=== PATIENT | male | born 1960 | race Two or more races ===

== ENCOUNTER → 2024-02-17 | Outpatient (CLI) | payer MEDICARE, MEDICAID, SELFPAY ==
[2024-02-17 08:47] LABS: Anion Gap 7 (7-16); BUN/Creatinine Ratio 15 Ratio (12-20); Blood Urea Nitrogen 15 mg/dL (9-23); Calcium 9.6 mg/dL (8.3-10.6); Carbon Dioxide 27.5 mMol/L (20.0-31.0); Chloride 107 mMol/L (98-107); Glucose 106 mg/dL (74-106); Osmolality,Calculated 282 (275-295); Potassium 4.3 mMol/L (3.4-5.1); Sodium 141 mMol/L (136-145); eGFR > 60 See Note
== END | disposition home or self-care (01) ==
PROVIDERS: PCP Internal Medicine; Referring Provider Otolaryngology; Visit Provider Otolaryngology
DX: H90.42 Sensorineural hearing loss, unilateral, left ear, with unrestricted hearing on the contralateral side (principal)
CPT/HCPCS: 36415; 80048

== ENCOUNTER → 2024-02-24 | Outpatient (CLI) | payer MEDICARE, MEDICAID, SELFPAY ==
--- NOTE | 2024-02-24 15:00 | XR_ITS ---
Examination: MRI of brain without intravenous contrast. MRI brain with intravenous contrast. Date and time of exam:February 24, 2024 1712 hrs. Indications: Bilateral hearing loss left-sided headaches and ringing in the left ear 3 months Technique: Multiple axial and sagittal images of the brain to been obtained. Siemens high-resolution 1.52 Julissa short bore scanner utilized. Sagittal sections, T1 weighted images, TR 500, TE 14, are performed. Axial sections proton-density and T2-weighted images have been obtained. Inversion recovery axial images, TR 9260, TE 111, TR 2500. Diffusion weighted images, axial sections, TR 4800, TE 128, B value 1000. Axial sections, ADC map, TR 4800, TE 128. Axial and coronal images were also obtained post 20 cc gadolinium administered intravenously. Findings:: Enlargement of the sella turcica is not present. The optic chiasm and infundibular stalk are not remarkable. There is no localized enlargement of the medulla or luis. Fourth ventricle and cerebellar tonsils appear normal in position. No subacute area of hemorrhage density is seen. Fourth ventricle is midline. Mass in the cerebellopontine angle region is not evident. 7th and 8th nerve complexes exhibit symmetry Globes are symmetrical Orbital musculature including medial lateral rectus muscles do not exhibit abnormality Increased white matter signal is mild Effacement of the cortical sulcal markings is not identified. Mass effect upon the ventricular system is not identified. Diffusion-weighted images demonstrate no focus of restricted diffusion Contrast images demonstrate no abnormal contrast enhancement Impression: Acute hemorrhage mass effect or midline shift No acute infarct Moderate chronic frontal ethmoid sinusitis No enhancing acoustic neurinoma, no abnormal enhancing cerebellar or cerebral lesions
== END | disposition home or self-care (01) ==
LOC: SMRI 14:47
PROVIDERS: PCP Otolaryngology; Referring Provider Otolaryngology; Visit Provider Otolaryngology
DX: R22.0 Localized swelling, mass and lump, head (principal); J32.8 Other chronic sinusitis
CPT/HCPCS: 70553; A9579

== ENCOUNTER → 2024-06-18 | Outpatient (CLI) | payer MEDICARE, MEDICAID, SELFPAY ==
--- NOTE | 2024-06-18 | XR_ITS ---
Examination: Left elbow 3 views Technique: Elbow AP, oblique, lateral 3 views Exam date and time: June 18, 2024 0756 hrs. Indications: Left elbow pain one year. Findings: No fracture or dislocation Mild narrowing elbow joints 4 mm posterior bony olecranon spur Impression: Mild elbow osteoarthritis.
== END | disposition home or self-care (01) ==
LOC: CDIM 07:17
PROVIDERS: PCP Internal Medicine; Referring Provider Internal Medicine; Visit Provider Internal Medicine
DX: M19.022 Primary osteoarthritis, left elbow (principal)
CPT/HCPCS: 73080

== ENCOUNTER → 2024-08-05 | Day surgery (SDC) | payer MEDICARE, MEDICAID, SELFPAY ==
--- NOTE | 2024-08-03 10:32 | EKG_ITS ---
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
[2024-08-03 11:18] VITALS: BMI 30.2
[2024-08-03 12:36] LABS: Alanine Aminotransferase 10 U/L (10-49); Albumin, Serum 4.3 gm/dL (3.4-4.8); Alkaline Phosphatase 64 U/L (46-116); Anion Gap 9 (7-16); Aspartate Amino Transferase 17 U/L (0-34); BUN/Creatinine Ratio 15 Ratio (12-20); Blood Urea Nitrogen 16 mg/dL (9-23); Calcium 8.8 mg/dL (8.3-10.6); Calcium (Corrected) 8.8 mg/dL (8.5-10.1); Carbon Dioxide 28.5 mMol/L (20.0-31.0); Chloride 104 mMol/L (98-107); Creatinine (Component) 1.1 mg/dL (0.6-1.3); Estimated Creatinine Clearance 74.3 mL/min (>60); Globulin 2.1 gm/dL (2.3-3.5); Glucose 110 mg/dL (74-106); Osmolality,Calculated 283 (275-295); Potassium 3.9 mMol/L (3.4-5.1); Sodium 141 mMol/L (136-145); Total Protein 6.4 gm/dL (5.7-8.2); eGFR > 60 See Note
[2024-08-03 12:37] LABS: INR 1.3 (0.9-1.3); Prothrombin Time 13.6 Seconds (9.0-12.2)
--- NOTE | 2024-08-04 14:57 | SUR.PREOP ---
Pt notified to come in at 1230 tomorrow.
[2024-08-05] VITALS (12 sets, daily range): BP systolic 101–130; BP diastolic 69–89; PULSE 74–88; RESP 12–22; TEMP 36.1–36.8; O2SAT 95–99; BMI 29.5
--- NOTE | 2024-08-05 17:03 | PD.SUROPNT ---
Date of Procedure 08/05/24 Pre Op Diagnosis Profound sensorineural hearing loss left ear Post Op Diagnosis Profound sensorineural hearing loss left ear Procedure Insertion of the left Sentio implant Findings Normal postauricular anatomy Procedure Description Indications: This is a 64-year-old male who has profound hearing loss in the left ear refractory to hearing aid usage. Treatment options were discussed as well as surgical risk of bleeding infection and implant extrusion and potential need for further surgery. He understood this as well as anticipated outcomes and wished to proceed. Patient was marked and shaved in preoperative setting and transferred to the operative suite where he is anesthetized intubated and sterilely prepped and draped. Timeout was performed. Curvilinear postauricular incision was created over the site of the anterior portion of the implant. Anterior and posterior flaps were developed and the template was used to make sure the flap was deep enough posteriorly. Once this is reached the appropriate sized the template was removed. The skull and been marked with the cautery at the center of where the well would be drilled. Using 4 mm cutting bur the wall was drilled down to between 1 and 2 mm depth. Template gauge was used to assure that it was the proper depth as well as diameter. A trough was drilled posteriorly for the electrode. The implant was then brought into the field and put in position. 45 mm band was selected and the self-tapping screws were used to hold the band in place. Incision was then closed in a multilayer fashion with 4-0 Vicryl and then Dermabond on the skin. Patient was awakened and taken the recovery room in stable condition Anesthesia GETA Implants Left Sentio implant Pathology / specimen None Estimated Blood Loss 5 Surgeon Brando Ortega DO Surgical Staff Operation Date: 08/05/24 14:30 Case Staff Anesthesiologist: Negrito Jimenez
--- NOTE | 2024-08-05 18:01 | SUR.PHASEI ---
1711 PATIENT RECEIVED INTO BAY 3, REPORT RECEIVED FROM NICOLE SMITH AND DR SCHMIDT, PATIENT ON OXY MASK AT 4L. INCISION BEHIND LEFT EAR IS CLEAN DRY AND INTACT AND DRESSED WITH DERMABOND. VSS NO S/S OF DISTRESS NOTED. 1720 CHARISMA EAR DRESSING APPLIED BY ALEXUS SMITH.
--- NOTE | 2024-08-05 18:06 | SUR.PHASEII ---
1800 PATIENT TOLERATING PO APPLE JUICE, VITALS REMAIN STABLE.
--- NOTE | 2024-08-05 19:51 | SUR.PHASEII ---
AT 1830 PATIENT'S GIVEN D/C INSTRUCTION, SHE STATED ALL INSTRUCTION WERE UNDERSTOOD AND HAD NO FURTHER QUESTION OR CONCERNS.
== END | disposition home or self-care (01) ==
PROVIDERS: PCP Internal Medicine; Referring Provider Otolaryngology; Visit Provider Otolaryngology
PROC: (CPT 69710; principal; 2024-08-05 14:30)
DX: H90.3 Sensorineural hearing loss, bilateral (principal); Z01.810 Encounter for preprocedural cardiovascular examination
CPT/HCPCS: 69716; L8614; 36415; 80053; 85025; 85610; 93005; A4217; A4649; J0690; J1100; J1885; J2250; J2371; J2405; J2704; J3010; J3490; Q9968

== ENCOUNTER → 2024-12-17 | Outpatient (CLI) | payer MEDICARE, MEDICAID, SELFPAY ==
--- NOTE | 2024-12-17 | XR_ITS ---
Examination: Shoulder, right, 3 views Technique: Shoulder AP internal rotation, AP external rotation, Y view shoulder, 3 views Exam date and time : December 17, 2024, 1149 hours INDICATIONS: Onset right shoulder pain beginning 1 month ago. FINDINGS: Mild narrowing glenohumeral joint Moderate osteoarthritis of acromioclavicular joint No shoulder fracture or dislocation IMPRESSION: Mild narrowing glenohumeral joint Moderate osteoarthritis acromioclavicular joint
== END | disposition home or self-care (01) ==
LOC: CDIM 11:13
PROVIDERS: PCP Internal Medicine; Referring Provider Internal Medicine; Visit Provider Internal Medicine
DX: M25.811 Other specified joint disorders, right shoulder (principal); M19.011 Primary osteoarthritis, right shoulder
CPT/HCPCS: 73030

== ENCOUNTER 2025-01-31 16:38 | Emergency (ER) | payer MEDICARE, MEDICAID, SELFPAY ==
[2025-01-31 17:22] VITALS: BP 104/76; PULSE 66; RESP 18; TEMP 36.5; O2SAT 97; BMI 24.3
--- NOTE | 2025-01-31 17:24 | XR_ITS ---
Examination: CT brain head without contrast. 2-D sagittal coronal reconstructions Date and time of exam: January 31, 2025, 1746 hours INDICATIONS: Dizziness weakness onset today CTDI: vol (mGy): 54.7 DLP: (mGycm): 1113 Technique: Multiple CT axial sections of the brain have been obtained, 5 mm slice thickness. Contrast has not been administered. 2-D sagittal, coronal reconstructions have been obtained Low dose protocols were performed. One or more of the following dose reduction techniques were used; automated exposure control, adjustment of the mA and/or KV according to patient size, use of iterative reconstruction technique. Findings: No significant ventricular enlargement. Intra-axial or extra-axial hemorrhage density is not seen. No mass effect or midline shift Basal cisterns are not remarkable. Fourth ventricle is midline. Cranial vault intact. Extensive artifacts secondary to opaque devices posterior left parietal bone Impression: Limited study with no acute hemorrhage, mass effect or midline shift
--- NOTE | 2025-01-31 17:24 | EKG_ITS ---
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
--- NOTE | 2025-01-31 17:26 | PD.EDRME ---
Rapid Medical Screening Exam E Arrival date/time: 01/31/25 16:38 This is a case of 64-year-old male who came in with history of hypertension came in in the emergency room due to dizziness nausea headache chest pain patient took blood pressure and noted to be 80/60 thus decided to start consulted in the emergency room Chief Complaint: Dizziness Time Seen by Provider: 01/31/25 17:01 Vital signs: Vital Signs Temperature 97.7 F 01/31/25 17:22 Pulse Rate 66 01/31/25 17:22 Respiratory Rate 18 01/31/25 17:22 Blood Pressure 104/76 01/31/25 17:22 Pulse Oximetry (%) 97 01/31/25 17:22 Oxygen Delivery Method Room Air 01/31/25 17:22 Exam: Neurological exam is normal awake alert oriented x 4 no focal deficit GCS 15/15 steady gait normal rate regular rhythm no murmur clear breath sounds Clinical Impression: Chest pain dizziness
[2025-01-31 18:22] LABS: Basophils # (Auto) 0.1 Thou/mm3 (0.0-0.2); Basophils % (Auto) 1 % (0-2.5); Eosinophils # (Auto) 0.4 Thou/mm3 (0.0-0.5); Eosinophils % (Auto) 4 % (0-10); Hematocrit 40.5 % (41.0-53.0); Hemoglobin 13.6 g/dL (13.5-16.0); Immature Granulocytes Auto 0.02 Thou/mm3 (0.00-0.00); Lymphocytes # (Auto) 2.8 Thou/mm3 (1.0-4.8); Lymphocytes % (Auto) 28 % (10-50); Mean Corpuscular HGB Conc 33.6 g/dl (31.0-37.0); Mean Corpuscular Hemoglobin 30.2 pg (25.0-35.0); Mean Corpuscular Volume 90 fL (80-100); Monocytes # (Auto) 0.7 Thou/mm3 (0.0-0.8); Monocytes % (Auto) 7 % (0-12); Neutrophils # (Auto) 6.1 Thou/mm3 (1.8-7.7); Neutrophils % (Auto) 60 % (37-80); Nucleated Red Blood Cell # 0.00 Thou/mm3 (0.00-0.00); Nucleated Red Blood Cell % 0 /100 WBC (0); Platelet Count 275 Thou/mm3 (140-440); RDW Standard Deviation 46.5 fL (35.1-43.9); Red Blood Count 4.50 Miln/mm3 (4.50-5.90); White Blood Count 10.2 Thou/mm3 (3.8-10.6)
[2025-01-31 18:51] LABS: Alanine Aminotransferase 9 U/L (10-49); Albumin, Serum 4.5 gm/dL (3.4-4.8); Albumin/Globulin Ratio 2.1 (1.2-2.2); Alkaline Phosphatase 57 U/L (46-116); Anion Gap 7 (7-16); Aspartate Amino Transferase 11 U/L (0-34); BUN/Creatinine Ratio 11 Ratio (12-20); Bilirubin,Total 0.7 mg/dL (0.3-1.2); Blood Urea Nitrogen 16 mg/dL (9-23); Calcium 9.5 mg/dL (8.3-10.6); Calcium (Corrected) 9.5 mg/dL (8.5-10.1); Carbon Dioxide 27.8 mMol/L (20.0-31.0); Chloride 103 mMol/L (98-107); Creatinine (Component) 1.4 mg/dL (0.6-1.3); Estimated Creatinine Clearance 50.2 mL/min (>60); Globulin 2.1 gm/dL (2.3-3.5); Glucose 97 mg/dL (74-106); Osmolality,Calculated 276 (275-295); Potassium 4.0 mMol/L (3.4-5.1); Sodium 138 mMol/L (136-145); Total Protein 6.6 gm/dL (5.7-8.2); Troponin I < 0.020 ng/mL (0.0-0.045); eGFR 55 See Note
[2025-01-31 19:30] LABS: Collection Type, Urine Clean Catch
[2025-01-31 19:39] LABS: Bilirubin,Urine Negative (Negative); Blood,Urine Negative (Negative); Clarity,Urine Clear (Clear/Hazy); Color,Urine Yellow (Lt Yel-Yel); Glucose, Urine Negative (Negative); Hyaline Casts,Urine < 1 /hpf (0-1); Ketones,Urine Negative (Negative); Leukocyte Esterase,Urine Negative (Negative); Nitrite,Urine Negative (Negative); PH,Urine 6.0 (5.0-7.0); Protein,Urine Negative (Neg - Trace); RBC,Urine 2 /hpf (0-3); Specific Gravity,Urine 1.016 (1.001-1.035); Squamous Epithelial Cell,Urine < 1 /hpf (0-5); Urobilinogen,Urine Negative mg/dL (0.0-1.0); WBC,Urine < 1 /hpf (0-5)
[2025-01-31 19:45] VITALS: BP 104/78; PULSE 67; RESP 25; TEMP 36.6; O2SAT 99
[2025-01-31 19:48] VITALS: BP 104/78; PULSE 48; RESP 18; TEMP 36.6; O2SAT 95
--- NOTE | 2025-01-31 20:07 | PD.EDADULT ---
ED General RME/HPI General Chief complaint: Dizziness Stated complaint: DIZZY, NAUSEA, CALMMY TODAY, BP LOW AT HOME Time Seen by Provider: 01/31/25 17:01 Arrival date/time: 01/31/25 16:38 CC: Lightheadedness dizzy, and slow heart rate HPI patient noticed today that she was driving around that he had lightheadedness dizziness. Patient became clammy at 1 point lay down for several hours. Patient has A-fib and is seen by Dr. Baer dye range operator patient is not sure what his medications are however review of the record show the patient is on amlodipine 10 mg. Patient is awake alert Metcalf denies any chest pain shortness of breath. RME / HPI RME / HPI narrative: 01/31/25 16:38 This is a case of 64-year-old male who came in with history of hypertension came in in the emergency room due to dizziness nausea headache chest pain patient took blood pressure and noted to be 80/60 thus decided to start consulted in the emergency room Exam: Neurological exam is normal awake alert oriented x 4 no focal deficit GCS 15/15 steady gait normal rate regular rhythm no murmur clear breath sounds Impression: Chest pain dizziness Related Data Home Medications ?Medication ?Instructions ?Recorded ?Confirmed amlodipine 10 mg tablet 10 mg PO QDAY 09/04/23 08/05/24 lisinopril 40 mg tablet 40 mg PO QDAY 09/04/23 08/05/24 apixaban 5 mg tablet (Eliquis) 5 mg PO Q12H 07/14/24 08/03/24 Held on 08/05/24. Instructions: Resume on 08/07/24. hydrochlorothiazide 25 mg tablet 25 mg PO DAILY 07/14/24 08/05/24 Previous Rx's ?Medication ?Instructions ?Recorded cephalexin 500 mg capsule 500 mg PO BID #3 caps 08/05/24 Allergies Allergy/AdvReac Type Severity Reaction Status Date / Time No Known Allergies Allergy Verified 01/31/25 16:41 Review of Systems Review of Systems Narrative Review of Systems: GEN: No fever, no chills, no weight loss EYES: No discharge, no visual changes, no pain HEENT: No ear pain, no congestion, no sore throat PULM: No shortness of breath, no cough, no congestion CV: No chest pain, no dyspnea on exertion, no palpitations GI: No nausea, no vomiting, no diarrhea, no pain, no constipation : No frequency, no urgency, no dysuria MUSC/SKEL: No joint pain, no back pain SKIN: No rash PSYCH: No hallucinations, no depression HEME/LYMPH: No easy bleeding or bruising tendencies NEURO: No weakness, no headache Past Medical History Past Medical History NEUROLOGIC: Negative Neurological Disorders or Seizures CARDIAC: Positive Cardiac Disorders, Cardiac Arrhythmia, Atrial Fibrillation and Hypertension; Negative Congestive Heart Failure RESPIRATORY: Negative Chronic Obstructive Pulmonary Disease (COPD) GASTROINTESTINAL: Negative Gastrointestinal Disorders or Hepatitis GENITOURINARY: Negative Genitourinary Disorders or Renal Disease MUSCULOSKELETAL: Positive Musculoskeletal Disorders and Fractures ENT: Positive Deafness (Left) ENDOCRINE: Negative Endocrine Disorders, Diabetes Mellitus Type 1 or Diabetes Mellitus Type 2 HEMATOLOGIC: Negative Blood Disorders OTHER HISTORY: Positive Hospitalization (heart evaluation); Negative Autoimmune Disease, Shingles, Blood Transfusions, Blood Transfusion Reaction, Anesthesia Reactions or Cancer Family History FAMILY HISTORY: Positive Family Cardiac Disorders and Family Surgery; Negative Family Psychiatric Problems, Family Respiratory Disorders, Family Gastrointestinal Problems, Family Cancer or Family Anesthesia Reaction Surgical History SURGICAL: Positive Abdominal Surgery and Bowel Surgery (colon resection) Social History SMOKING STATUS: Never smoker SECOND HAND EXPOSURE: No ED Exam Narrative Physical exam: [General: Not in any acute distress Head normocephalic HEENT: Within acceptable limits Neck is supple nontender Chest equal chest rise nontender to palpation Respiratory: Clear to auscultation no wheezes crackles or rubs CV: Rate rhythm is irregular, bradycardic, no murmurs rubs or clicks Abdomen is soft nontender no masses positive bowel sounds all 4 quadrants Back: No CVA tenderness no spinous process tenderness from cervical spine thoracic and lumbar spine Skin: Intact no petechiae rash induration ulceration or crepitus Extremities: Moving all extremities against resistance cap refill less than 2 seconds neurosensory intact Neuro: Awake alert oriented x3 Glascow coma 15 no focal deficits] Course Course Course Narrative: Reassessed the patient after 1 L fluid the pressures have responded nicely. Currently patient has a pressure of 113/85, however, the patient continues to have a slow ventricular response.. I suspect this is overdosed on the amlodipine. At this time the patient will be advised to go home stop his amlodipine for 3 days, and record his pulse rate once in the morning once in the evening for those 3 days then, if the ventricular rate increases he is to restart his amlodipine at half dose of 5 mg. Follow-up with his dye range operator or if the heart rate stays close return to the emergency room for symptomatic bradycardia. Quality Measures none Orders Category Date Time Status EKG (ED ONLY) *Do not use* NOW Care 01/31/25 17:24 Completed Saline [Insert IV] NOW Care 01/31/25 20:[address] head/brain wo con Stat Exams 01/31/25 17:24 Completed EKG (ED Only) Stat Exams 01/31/25 17:24 Draft CBC Stat Lab 01/31/25 18:00 Completed Comprehensive Metabolic Panel Stat Lab 01/31/25 18:00 Completed Troponin I Stat Lab 01/31/25 18:00 Completed Urinalysis Stat Lab 01/31/25 17:55 Completed Sodium Chloride 0.9% 1000 ml [Ns] 1,000 ml Med 01/31/25 20:06 Active IV 999 mls/hr Vital Signs Vital signs: Vital Signs Temperature 97.7 F 01/31/25 17:22 Pulse Rate 66 01/31/25 17:22 Respiratory Rate 18 01/31/25 17:22 Blood Pressure 104/76 01/31/25 17:22 Pulse Oximetry (%) 97 01/31/25 17:22 Oxygen Delivery Method Room Air 01/31/25 17:22 Discharge Plan Plan Patient Disposition: HOME (Self Care) Patient condition on transfer: Stable Prescriptions/Referrals Prescriptions/Med Rec: No Action Eliquis 5 mg tablet 5 mg PO Q12H Patient Comments: TAKE 1 TABLET BY MOUTH TWICE A DAY hydrochlorothiazide 25 mg tablet 25 mg PO DAILY Patient Comments: TAKE 1 TABLET BY MOUTH EVERY DAY cephalexin 500 mg capsule 500 mg PO BID Qty: 3 0RF Rx Instructions: Begin first dose tonight amlodipine 10 mg tablet 10 mg PO QDAY lisinopril 40 mg tablet 40 mg PO QDAY Referrals: Na Correia MD [Primary Care Provider, Nephrology] - In 1 week Problem List Clinical Impression: Slow ventricular response Patient/Caregiver Discharge Instructions Other Activity Instructions:: 1: Stop taking your amlodipine for the next 3 days 2: Take your heart rate twice a day and write it down once in the evening and once in the morning. 3: After 3 days if your heart in rate has not improved, return to the emergency room for evaluation for symptomatic bradycardia. 4: Call Dr. Baer's office for a follow-up or call Dr. Correia's office for a follow-up for adjustment on your hypertension medication. 5: Rest, no traveling, no excessive exercise, no excessive stressful activities in the house for the next 3 days. Education Materials: Your Heart Is at Risk Print Language: Panamanian Stand Alone Forms: Malina Award Info., Work/School Release, Patient Portal Info Letter NOLBERTO/GABINO Supervising Physician NOLBERTO/GABINO Supervising Physician: Jeff GARCIA Clinical Information Provided by: patient Medical Records reviewed [facility] Meds/Rx considered, not ordered None Labs/Rad/Tests considered, not ordered None Chronic Illness/Social Conditions Explain: A-fib EKG Interpretation EKG #1: EKG Interpretation: EKG performed at 1729 shows a ventricular rate of 58 QRS of 109 QTc of 374 there is A-fib with slow ventricular response. Labs Labs: interpreted by tn Lab(s) Interpretation(s): CBC shows no acute leukocytosis anemia thrombocytopenia CMP shows no significant electrolyte imbalances there is a creatinine of 1.4 which is elevated compared to prior lab results. No transaminitis or T. bili elevation. Urine is negative for UTI Imaging Imaging interpretation: interpreted by me Imaging Interpretation(s): CT head is negative Medication Administration(s) Medication Administration History Sodium Chloride (Ns) 1,000 mls @ 999 mls/hr IV .Q1H1M ONE Stop: 01/31/25 21:06 Last Admin: 01/31/25 20:13 Dose: 999 mls/hr Documented By: LIANA Diagnosis Differential Diagnosis ED Complaint MDM: Dehydration, beta-bashir overdose ACS ID
[2025-01-31] MEDS: SODIUM CHLORIDE 0.9% 1000 ML 1,000 ML 999 ML IV (20:13)
[2025-01-31 21:24] VITALS: PULSE 54
== END 2025-01-31 21:25 | disposition home or self-care (01) ==
PROVIDERS: Nurse Practitioner Family; Emergency Provider Emergency Medicine; PCP Internal Medicine
DX: I48.91 Unspecified atrial fibrillation (principal); I45.10 Unspecified right bundle-branch block; I10 Essential (primary) hypertension
CPT/HCPCS: 36415; 70450; 80053; 81001; 84484; 85025; 93005; 99283; J7030